=== PATIENT | female | born 1950 | race Caucasian/White ===

== ENCOUNTER 2019-07-09 10:35 | Emergency (ER) | payer OTHER ==
[~2019-07-09] VITALS: Ht 152.4 cm; Wt 68.5 kg
[2019-07-09 10:45] VITALS: Ht 152.4 cm; Wt 68.5 kg
[2019-07-09 14:14] VITALS: BP 109/54
== END 2019-07-09 14:14 | disposition home or self-care (01) ==
LOC: ED 10:35
DX: R51 Headache (principal); H57.11 Ocular pain, right eye; M54.2 Cervicalgia; M25.551 Pain in right hip; J45.909 Unspecified asthma, uncomplicated; Z88.0 Allergy status to penicillin; V43.52XA Car driver injured in collision with other type car in traffic accident, initial encounter; Y93.I9 Activity, other involving external motion; Y92.488 Other paved roadways as the place of occurrence of the external cause; Y99.8 Other external cause status